=== PATIENT | female | born 1950 | race Caucasian/White ===

== ENCOUNTER 2018-12-26 23:05 | Inpatient (IN) ==
[2018-12-27] MEDS ORDERED: NS 1,000 ML IV ONE ×2 (00:48→02:12)
[2018-12-27] MEDS ORDERED: ROCEPHIN 1 GM in NS 50 ML IV ONE (00:48)
[2018-12-27 01:05] LABS: URINE SOURCE CLEAN CATCH
[2018-12-27 01:11] LABS: BILIRUBIN URINE SMALL (NEGATIVE); BLOOD URINE SMALL (NEGATIVE); COLOR YELLOW; GLUCOSE URINE TRACE mg/dL (NEGATIVE); KETONE URINE 10 mg/dL (NEGATIVE); LEUKOCYTES URINE LARGE (NEGATIVE); NITRITE URINE POSITIVE (NEGATIVE); PH URINE 5.5; PROTEIN URINE 100 mg/dL (NEGATIVE); SP GRAVITY URINE 1.031; TURBIDITY URINE HAZY (CLEAR); UROBILINOGEN URINE 4 mg/dL (NORMAL)
[2018-12-27 01:12] LABS: UR EPITHELIAL CELLS <10 /HPF (<10); URINE BACTERIA 4+ /HPF; URINE RBC <10 /HPF (<10); URINE WBC TNTC /HPF (<10)
[2018-12-27 01:34] LABS: INR 1.35; PROTIME 17.8 Seconds (11.0-16.0)
[2018-12-27] MEDS ORDERED: ZOFRAN IV ONE (01:37)
[2018-12-27 01:49] LABS: BASO# 0.03 X1000 (0.0-0.2); BASO% 0.2 % (0.0-0.8); EOS# 0.02 X1000 (0.0-0.7); EOS% 0.1 % (0.0-10.0); HEMATOCRIT 31.7 % (37.0-47.0); HEMOGLOBIN 10.1 g/dL (12.0-16.0); IMM GRAN# 0.03 X1000 (0.0-0.04); IMM GRAN% 0.2 % (0.0-0.5); LYMPH# 0.93 X1000 (1.2-3.4); LYMPH% 6.3 % (20.5-51.1); MCH 26.3 PG (27-31); MCHC 31.9 g/dL (33-37); MCV 82.6 FL (81-99); MONO# 0.78 X1000 (0.11-0.59); MONO% 5.3 % (1.7-9.3); MPV 11.4 FL (7.4-10.4); NEUT# 12.87 X1000 (1.4-6.5); NEUT% 87.9 % (42.2-75.2); PLT 104 X1000 (130-400); RBC 3.84 XMIL (4.2-5.4); RDW 15.8 % (11.5-14.5); WBC 14.66 X1000 (4.8-10.8)
[2018-12-27 02:05] LABS: AGAP 19; ALB/GLOB RATIO 1.1; ALBUMIN 3.6 g/dL (3.5-5.0); ALKALINE PHOSPHATASE 73 U/L (32-104); BUN 9 mg/dL (8-22); CALCIUM 8.5 mg/dL (8.8-10.2); CHLORIDE 98 mmol/L (98-107); CK PROFILE 92 U/L (24-173); COSMO 278; CREATININE 0.9 mg/dL (0.5-0.9); ESTIMATED GFR > 60; GLUCOSE 193 mg/dL (70-104); GOT 31 U/L (10-30); GPT 16 U/L (10-36); POTASSIUM 3.4 mmol/L (3.5-5.1); SODIUM 137 mmol/L (136-145); TCO2 20 mmol/L (25-35); TOTAL BILIRUBIN 3.29 mg/dL (0.20-1.00)
[2018-12-27] MEDS ORDERED: VANCOMYCIN 1 GM/NS 1 GM/250 ML IVPB IV ONE (02:12)
--- NOTE | 2018-12-27 02:39 | PROVIDER DOCUMENTATION ---
This chart was entered by Sola Chase Scribe, acting as scribe for Ryne Pride MD. HPI-Female /OB/Breast - General Chief Complaint: Female Stated Complaint: LOWER BACK/KIDNEY Time Seen by Provider: 12/27/18 00:43 Source: reports: patient Allergies/Adverse Reactions: Patient Allergies Allergy/AdvReac Type Severity Reaction Status Date / Time hydrocodone bitartrate * AdvReac Mild NAUSEA Verified 01/22/18 18:51 [From Lortab] morphine AdvReac Unknown Verified 06/25/18 22:36 promethazine [From Phenergan] AdvReac Unknown Verified 01/23/18 03:27 Home Medications: Home Medication List Medication Instructions Recorded Confirmed Last Taken Type Sitagliptin Phos/Metformin HCl 1 each PO QAM 05/21/16 01/23/18 01/22/18 History [Janumet 50-1,000 mg Tablet] Furosemide 20 mg PO DAILY #90 tab 01/26/18 Unknown Rx Iron Carbonyl/Ascorbic Acid 1 ea PO BID #180 tab 01/26/18 Unknown Rx [Icar-C] Lactulose 30 ml PO TID #2 udc 01/26/18 Unknown Rx Levothyroxine [Synthroid] 75 microgm PO QAM #90 tab 01/26/18 Unknown Rx Multivitamins/Minerals [Centrum 1 ea PO DAILY #100 tab 01/26/18 Unknown Rx Silver] Nadolol [Corgard] 20 mg PO DAILY #90 tab 01/26/18 Unknown Rx Pantoprazole [Protonix] 40 mg PO BID #180 tab 01/26/18 Unknown Rx Spironolactone 25 mg PO BID #180 tab 01/26/18 Unknown Rx - History of Present Illness-Female /OB Nature of Presenting Problem: Pt is 68/F presenting to ED w/ bilateral flank pain and sts that her urine has a strong odor.Pt has hx of bladder infections, pt also has hx of Cirrhosis of the liver and Diabetes. Does patient report she is ?: No Location of complaint: reports: right flank, left flank Radiation: reports: none Quality of Pain: reports: none Severity in ED: reports: moderate Onset/Duration: reports: gradual Timing: reports: still present Context/Activities at Onset: reports: none Vaginal Symptoms: reports: foul odor Vaginal Bleeding Amount: None Urinary Symptoms: reports: no symptoms Leakage of Fluid: none Sexual intercourse history: reports: Not Active Contraception: reports: none Associated Symptoms: reports: weakness. denies: anxiety, diarrhea, vomiting Similar Symptoms Previously?: No Recently seen or treated by another doctor?: No Review of Systems - Adult - REVIEW OF SYSTEMS - ADULT Constitutional: reports: chills, fever Eyes: reports: no symptoms reported Ears, Nose, Mouth & Throat: reports: no symptoms reported Cardiovascular: reports: no symptoms reported Respiratory: reports: no symptoms reported Gastrointestinal: reports: no symptoms reported. denies: abdominal pain, vomiting Genitourinary: reports: flank pain, frequent UTI's. denies: dysuria Musculoskeletal: reports: back pain Integumentary: reports: no symptoms reported Neurological: denies: dizziness/vertigo, headache/migraines Psychiatric: reports: no symptoms reported Past History - Adult - PAST MEDICAL HISTORY-ADULT Review of Records: reports: Old Records Reviewed, Nursing Assessment Review, Medications Reviewed, Social history reviewed & non-contributory. Major Childhood Illnesses: reports: denies history Cardiovascular: reports: HTN, murmur Respiratory: reports: denies history Gastrointestinal: reports: other (cirrhosis) Obstetrical/Gynecological: reports: uterine/ovarian cancer Genitourinary: reports: denies history Musculoskeletal: reports: arthritis (RA) Neurological: reports: denies history Endocrine/Immune: reports: Diabetes, thyroid disorder Other Conditions: reports: denies history - PRIOR SURGERIES/PROCEDURES Surgical/Procedure History: reports: hysterectomy, other (cervical ca removed x2 ) - IMMUNIZATION STATUS Childhood Immunizations: See Nurse Assessment Flu Vaccine: See Nurse Assessment - FAMILY HISTORY Family History: reviewed, not pertinent - SOCIAL HISTORY Smoking: denies, non-smoker Substance Use: none/never Alcohol Use Frequency: never Living Situation: family Physical Exam-General - PHYSICAL EXAM-ADULT Initial Vital Signs Reviewed: Yes - CONSTITUTIONAL General Appearance: alert, moderate distress, other (jaundice noted) - EYES Eyes: PERRL/EOMI - HEAD, EARS, NOSE, MOUTH & THROAT HENMT: normocephalic/atraumatic, moist mucous membranes - NECK Neck: non-tender, full range of motion, supple, normal inspection - RESPIRATORY Respiratory: lungs clear, normal breath sounds - CARDIOVASCULAR Cardiovascular: tachycardia, systolic murmur - GASTROINTESTINAL (ABDOMEN) Abdominal Exam: normal bowel sounds, soft, tenderness (lower abdomen) - MUSCULOSKELETAL Back Exam: CVA tenderness (R cva) Extremity: normal range of motion, non-tender, normal gait, normal inspection - SKIN Integumentary: normal color, warm/dry - NEUROLOGIC Neurologic: grossly normal - PSYCHIATRIC Psych/Mental Status: normal thought content, normal thought process, oriented x 3 Progress - PLAN OF CARE/RESULTS Progress/Plan/Lab Results: Vital Signs - 8 hr 12/26/18 23:23 12/27/18 01:32 12/27/18 01:34 Temperature 100.9 F H Pulse Rate 110 H 116 H 113 H Respiratory Rate 20 27 H 27 H Blood Pressure 145/72 161/71 O2 Sat by Pulse Oximetry 96 97 12/27/18 01:35 12/27/18 01:40 12/27/18 01:50 Temperature Pulse Rate 107 H 108 H 115 H Respiratory Rate 29 H 28 H 36 H Blood Pressure O2 Sat by Pulse Oximetry 97 97 95 Laboratory Results - last 24 hr 12/27/18 12/27/18 12/27/18 00:22 01:10 01:10 WBC 14.66 H RBC 3.84 L Hgb 10.1 L Hct 31.7 L MCV 82.6 MCH 26.3 L MCHC 31.9 L RDW Std Deviation 15.8 H Plt Count 104 L MPV 11.4 H Immature Gran % (Auto) 0.2 Neut % (Auto) 87.9 H Lymph % (Auto) 6.3 L [place] % (Auto) 5.3 Eos % (Auto) 0.1 Baso % (Auto) 0.2 Immature Gran # (Auto) 0.03 Neut # (Auto) 12.87 H Lymph # (Auto) 0.93 L [place] # (Auto) 0.78 H Eos # (Auto) 0.02 Baso # (Auto) 0.03 PT INR PTT (Actin FS) Sodium 137 Potassium 3.4 L Chloride 98 Carbon Dioxide 20 L Anion Gap 19 BUN 9 Creatinine 0.9 Estimated GFR/1.73 m2 > 60 BUN/Creatinine Ratio 10 Glucose 193 H Calculated Osmolality 278 Calcium 8.5 L Magnesium Total Bilirubin 3.29 H AST 31 H ALT 16 Alkaline Phosphatase 73 Creatine Kinase 92 Troponin T Total Protein 7.0 Albumin 3.6 Globulin 3.4 Albumin/Globulin Ratio 1.1 Plasma Lactate Urine Source CLEAN CATCH Urine Color YELLOW Urine Turbidity HAZY Urine pH 5.5 Ur Specific [place] 1.031 Urine Protein 100 A Ur Glucose (Stick) TRACE Ur Ketones (Stick) 10 A Urine Blood SMALL A Urine Nitrite POSITIVE A Urine Bilirubin SMALL A Urobilinogen Dipstick 4 A Urine Leukocytes LARGE A Urine WBC (Auto) TNTC A Urine RBC (Auto) <10 U Epithel Cells (Auto) <10 Urine Bacteria (Auto) 4+ 12/27/18 12/27/18 12/27/18 01:10 01:10 01:10 WBC RBC Hgb Hct MCV MCH MCHC RDW Std Deviation Plt Count MPV Immature Gran % (Auto) Neut % (Auto) Lymph % (Auto) [place] % (Auto) Eos % (Auto) Baso % (Auto) Immature Gran # (Auto) Neut # (Auto) Lymph # (Auto) [place] # (Auto) Eos # (Auto) Baso # (Auto) PT 17.8 H INR 1.35 PTT (Actin FS) 26.0 Sodium Potassium Chloride Carbon Dioxide Anion Gap BUN Creatinine Estimated GFR/1.73 m2 BUN/Creatinine Ratio Glucose Calculated Osmolality Calcium Magnesium Total Bilirubin AST ALT Alkaline Phosphatase Creatine Kinase Troponin T < 0.010 Total Protein Albumin Globulin Albumin/Globulin Ratio Plasma Lactate 5.2 H* Urine Source Urine Color Urine Turbidity Urine pH Ur Specific [place] Urine Protein Ur Glucose (Stick) Ur Ketones (Stick) Urine Blood Urine Nitrite Urine Bilirubin Urobilinogen Dipstick Urine Leukocytes Urine WBC (Auto) Urine RBC (Auto) U Epithel Cells (Auto) Urine Bacteria (Auto) 12/27/18 01:10 WBC RBC Hgb Hct MCV MCH MCHC RDW Std Deviation Plt Count MPV Immature Gran % (Auto) Neut % (Auto) Lymph % (Auto) [place] % (Auto) Eos % (Auto) Baso % (Auto) Immature Gran # (Auto) Neut # (Auto) Lymph # (Auto) [place] # (Auto) Eos # (Auto) Baso # (Auto) PT INR PTT (Actin FS) Sodium Potassium Chloride Carbon Dioxide Anion Gap BUN Creatinine Estimated GFR/1.73 m2 BUN/Creatinine Ratio Glucose Calculated Osmolality Calcium Magnesium 1.7 Total Bilirubin AST ALT Alkaline Phosphatase Creatine Kinase Troponin T Total Protein Albumin Globulin Albumin/Globulin Ratio Plasma Lactate Urine Source Urine Color Urine Turbidity Urine pH Ur Specific [place] Urine Protein Ur Glucose (Stick) Ur Ketones (Stick) Urine Blood Urine Nitrite Urine Bilirubin Urobilinogen Dipstick Urine Leukocytes Urine WBC (Auto) Urine RBC (Auto) U Epithel Cells (Auto) Urine Bacteria (Auto) Orders Category Date Time Status Cardiac Monitoring DIRECTED Care 12/27/18 00:46 Active IV Insertion ORDERED Care 12/27/18 00:46 Completed Notify MD of + Sepsis Screen NOW Care 12/27/18 00:46 Active Notify Physician As Ordered Care 12/27/18 00:46 Active CHEST-1 VIEW [RAD] Stat Exams 12/27/18 00:46 Taken BLOOD CULTURE [BLDCUL] Stat Lab 12/27/18 01:00 Results CBC WITH DIFF [HEME] Stat Lab 12/27/18 01:10 Completed CK PROFILE [SP CHEM] Stat Lab 12/27/18 01:10 Completed COMPREHENSIVE METABOLIC PANEL [CHEM] Stat Lab 12/27/18 01:10 Completed LACTATE, PLASMA [CHEM] Lab 12/27/18 01:10 Completed LACTATE, PLASMA [CHEM] Lab 12/27/18 04:00 Uncollected LACTATE, PLASMA [CHEM] Lab 12/27/18 07:00 Uncollected MAGNESIUM [CHEM] Stat Lab 12/27/18 01:10 Completed PROTIME WITH INR [COAG] Stat Lab 12/27/18 01:10 Completed PTT [COAG] Stat Lab 12/27/18 01:10 Completed TROPONIN T Stat Lab 12/27/18 01:10 Completed URINALYSIS W/POSS RFLX CULT [URINALYSIS] Stat Lab 12/27/18 00:22 Completed URINE CULTURE [RM] Routine Lab 12/27/18 01:13 Received 0.9% Sodium Chloride Inj [Ns] 1,000 ml Med 12/27/18 00:48 Discontinued IV 999 mls/hr 0.9% Sodium Chloride Inj [Ns] 1,000 ml Med 12/27/18 02:12 Active IV 999 mls/hr CefTRIAXONE [Rocephin] 1 gm Med 12/27/18 00:48 Discontinued 0.9% Sodium Chloride Inj [Ns] 50 ml IV NOW Ondansetron [Zofran] Med 12/27/18 01:37 Discontinued 4 mg IV NOW ONE Vancomycin 1 gm/Ns Med 12/27/18 02:12 Active 1 gm in 250 ml IV NOW Oxygen Device Stat Oth 12/27/18 00:46 Active Pt meet criteria for sepsis, sepsis protocol initiated. source UTI. Result Diagrams: 12/27/18 01:10 12/27/18 01:10 - CONSULTS/PCP/HOSPITALIST Notification #1 *Consult/PCP/Hospitalist*: Dr. Lance Time Discussed: 02:28 Consult Disposition: Admit (Hx, PE and pt care discussed, accepted.) Departure - Departure Date of Disposition Decision: 12/27/18 Time of Disposition Decision: 02:34 DIAGNOSIS: Pyelonephritis, Severe sepsis Disposition: ADMITTED INPATIENT 09 Certified Medical Emergency: Emergent Condition: Serious Referrals and Follow-Ups: Flori Delacruz MD [Primary Care Provider] - - Critical Care Note This patient required my direct & personal management of CC.: No Attestation - Physician/ CELI Attestation Patient care was provided by Advanced Practice Provider:: No The physician spent face to face time with patient:: Yes Advanced Practice Provider documentation review:: Supervising physician onsite and consulted in the evaluation and care of this patient. The physician did have a face to face encounter with the patient. This chart was documented by the indicated scribe, (Sola Chase, Akila) and accurately reflects the services I performed and decisions made by me, Ryne Reyes MD, as attested by the provider's signature.
[2018-12-27] MEDS ORDERED: KLOR-CON PO ONE (03:32)
[2018-12-27] MEDS ORDERED: MAGNESIUM SULFATE 1 GM/D5W 1 GM/100 ML IVPB IV ONE (03:32)
[2018-12-27] MEDS ORDERED: ZOFRAN IV PRN (03:32)
[2018-12-27 03:56] LABS: HEMOGLOBIN A1C 8.7 % (4.8-6.0)
--- NOTE | 2018-12-27 04:06 | HISTORY AND PHYSICAL ---
CHIEF COMPLAINT: Flank pain and strong smelling urine. HISTORY OF PRESENT ILLNESS: This is an unfortunate 68-year-old female with a history of FLORES which is progressing to cirrhosis with ascites. She has a history of diabetes mellitus type 2, hypertension and hypothyroidism as well. She comes in having bilateral flank pain and foul smelling urine. Laboratory data showed the patient to have leukocytosis as well as nitrate- positive leukocyte esterase urinary tract infection. Her total bilirubin was noted to be 3.29, which is higher than her baseline level. Ammonia has not been checked, but the patient was slightly confused. I am unsure if this is secondary to the urinary tract infection or possible hepatic encephalopathy. She will be admitted for further evaluation and treatment. PAST MEDICAL HISTORY: See HPI. PREVIOUS SURGICAL HISTORY: Total hysterectomy, EGD with variceal banding, cervical cancer removed x2. ALLERGIES: [place] causing nausea, morphine causing nausea and Phenergan. HOME MEDICATIONS: The family and patient did not know the home medications. I believe that she takes Lasix 20 mg p.o. daily, ICAR-C p.o. b.i.d., lactulose 30 mL p.o. t.i.d., Synthroid 75 mcg p.o. q.a.m., multivitamin 1 daily, nadolol 20 mg p.o. daily, Protonix 40 mg p.o. b.i.d., Janumet p.o. q.a.m. and spironolactone 25 mg p.o. b.i.d. This will be confirmed with her pharmacy tomorrow. SOCIAL HISTORY: Lives with her daughter. No tobacco, alcohol or illicit drugs. FAMILY HISTORY: Mother from uterine cancer. REVIEW OF SYSTEMS: A 14-point review of systems was conducted with the patient with pertinent positives listed above in the HPI. All other systems reviewed and found to be negative. PHYSICAL EXAMINATION: VITAL SIGNS: Temperature 100.9, pulse 114, respirations 20, blood pressure 145/72, oxygen saturation 96% on room air. GENERAL: A pleasant, somewhat confused 68-year-old female, chronically ill- appearing. Oriented to person and place, somewhat disoriented to situation. Oriented to time. In no acute distress. HEENT: Head is atraumatic, normocephalic. Pupils are equal, round and reactive to light. Extraocular eye movements are intact. Sclerae are jaundiced. Conjunctivae are pale. Oral mucosa is dry. NECK: Supple. No JVD. Mild hepatojugular reflux. CARDIAC: S1 and S2 appreciated. A 3/6 systolic ejection murmur noted. No gallops. No rubs. LUNGS: Decreased bilaterally. No rhonchi, wheezes or rales. Symmetrical rise and fall with respirations. ABDOMEN: Protuberant, soft, nondistended. Positive fluid wave test. Bowel sounds hypoactive in all 4 quadrants. EXTREMITIES: No clubbing, cyanosis, or edema; 2+ pedal pulses bilaterally. GENITOURINARY: No bladder distention. Patient voids. Otherwise deferred. NEUROLOGICAL: Oriented to person, place and time. Somewhat disoriented to situation. Some confusion while talking. No focal motor deficits. Otherwise nonfocal examination. INTEGUMENTARY: Jaundiced. Warm, dry and intact. No acute lesions or rash. DIAGNOSTIC DATA: Chest x-ray: No effusions or infiltrates. LABORATORY DATA: WBC 14.66, hemoglobin 10.1, hematocrit 31.7, platelet count 104,000. INR 1.35. Sodium 137, potassium 3.4, chloride 98, carbon dioxide 20, BUN 9, creatinine 0.9, glucose 193. Total bilirubin 3.29. Urine nitrate positive, leukocyte esterase positive, too numerous to count WBCs. ASSESSMENT AND PLAN: 1. Urinary tract infection. Will treat with Zosyn IV. The patient has had 2 urines that were positive for Escherichia coli that was resistant to Zosyn. Will change pending cultures if necessary. 2. FLORES (non-alcoholic fatty liver disease) which is progressing to cirrhosis. The patient has an elevated bilirubin. Will hydrate with fluid. Recheck laboratory data in the a.m. The patient's bilirubin is chronically elevated, however, this is slightly higher than usual. 3. Mild encephalopathy. This is likely secondary to hepatic encephalopathy or infectious encephalopathy related to the urinary tract infection. Will start lactulose 30 mL b.i.d. 4. Diabetes mellitus type 2 with hyperglycemia. Check hemoglobin A1c. Fingerstick blood sugars q.a.c. and at h.s. with sliding scale insulin. Hold Janumet. Further recommendations per the patient's clinical course. Dictated by PATRICIA Gallegos for Lacy Lance MD cc: PATRICIA Gallegos MD Independent exam and assessment performed by me at bedside with [facility]. For now will continue with Zosyn,but if pt is still symptomatic despite coverage with Zosyn (which is given to extend coverage to the biliary system) one needs to consider possibility of SBP and switch abx accordingly. No clinical exam to suggest peritoneal or biliary etiology except for icterus noted. MTDD
[2018-12-27] MEDS: LOVENOX SUBQ SCH (04:22)
[2018-12-27] MEDS: NS 1,000 ML IV SCH ×2 (04:22→10:43)
--- NOTE | 2018-12-27 05:23 | Diag Imaging Result Doc PS360 ---
EXAM: CHEST-1 VIEW HISTORY: sepsis TECHNIQUE: Chest single view COMPARISON: 08/22/2018 FINDINGS: The lungs are well expanded. The heart is not enlarged. The vessels are not distended. There are no infiltrates. Small left effusion versus pleural thickening. IMPRESSION: No pneumonia Electronically signed by Anand Baker 12/27/2018 5:21 AM
[2018-12-27] MEDS: ZOSYN 3.375 GM in NS 50 ML IV SCH ×3 (05:54→18:40)
[2018-12-27] MEDS: SYNTHROID PO SCH ×2 (05:54→06:42)
[2018-12-27] MEDS: HUMALOG SUBQ SCH ×4 (06:42→21:17)
[2018-12-27] MEDS: ALDACTONE PO SCH ×2 (10:38→21:16)
[2018-12-27] MEDS: ICAR-C PO SCH ×2 (10:38→21:16)
[2018-12-27] MEDS: CORGARD PO SCH (10:38)
[2018-12-27] MEDS: LACTULOSE PO SCH ×3 (10:38→21:16)
[2018-12-27] MEDS: PROTONIX PO SCH ×2 (10:38→21:16)
[2018-12-27] MEDS: LASIX PO SCH (10:38)
--- NOTE | 2018-12-27 16:18 | PROGRESS NOTE ---
DATE: 12/27/2018 SUBJECTIVE: This patient is alert. She is oriented. She seems to be weak and apparently she was confused today in the morning and yesterday. She has a history of liver cirrhosis and urinary tract infection right now. Also we have a positive blood culture 1/2 that showed gram-positive cocci. She has been placed on Zosyn and I will add Zyvox to her medications. OBJECTIVE: Vital Signs: Temperature 98.1 degrees, pulse 101, respiratory rate 18, blood pressure 124/49, oxygen saturation 97% on 2 L of nasal cannula. HEENT: Head normocephalic no trauma PERRLA. Icteric sclerae. Neck: Supple, no JVD, central trachea. Chest: Clear to auscultation, no wheezing, no rales. Slightly decreased at the bases. Abdomen: Soft, protuberant and slightly distended. Positive fluid wave test. Bowel sounds present. Extremities: No clubbing, no cyanosis. She has no edema. Neurological: The patient is alert. She is oriented. She is following commands, but apparently she has been having some confusion. LABORATORY: WBC 14.6, hemoglobin 10.1, hematocrit 31.7, platelets 104,000. Sodium 137, potassium 3.4, chloride 98, bicarbonate 20, BUN 9, creatinine 0.9, glucose 193, calcium 8.5. ASSESSMENT AND PLAN: 1. Sepsis secondary to urinary tract infection. We will continue with Zosyn and I will add vancomycin due to gram-positive cocci bacteremia 1/2. 2. Gram-positive cocci bacteremia. Blood culture showed 1/2 positive result for gram-positive cocci, I have placed this patient on Zyvox. Probably this is a contamination. 3. Nonalcoholic steatohepatitis which is progressing to liver cirrhosis. She has elevated bilirubin. We will continue with IV fluids and I will recheck this patient in the morning. 4. Mild encephalopathy. It looks like this is getting better. We will continue with the same management, likely secondary to urinary tract infection. 5. Type 2 diabetes. Hemoglobin A1c is 8.7. We will continue with same management for now. cc: Karthikeyan Shay MD
[2018-12-27] MEDS: ZYVOX 600 MG/D5W 600 MG/300 ML IVPB IV SCH (21:15)
[2018-12-28] MEDS: ZOSYN 3.375 GM in NS 50 ML IV SCH ×4 (00:16→17:48)
[2018-12-28] MEDS: NS 1,000 ML IV SCH ×3 (03:08→06:41)
[2018-12-28] MEDS: HUMALOG SUBQ SCH ×4 (06:08→22:04)
[2018-12-28] MEDS: SYNTHROID PO SCH (06:08)
[2018-12-28 07:30] LABS: BASO# 0.03 X1000 (0.0-0.2); BASO% 0.6 % (0.0-0.8); EOS# 0.02 X1000 (0.0-0.7); EOS% 0.4 % (0.0-10.0); HEMOGLOBIN 7.8 g/dL (12.0-16.0); LYMPH# 0.71 X1000 (1.2-3.4); LYMPH% 13.2 % (20.5-51.1); MCH 26.7 PG (27-31); MCHC 31.2 g/dL (33-37); MCV 85.6 FL (81-99); MONO# 0.61 X1000 (0.11-0.59); MONO% 11.3 % (1.7-9.3); MPV 12.3 FL (7.4-10.4); NEUT# 4.02 X1000 (1.4-6.5); NEUT% 74.5 % (42.2-75.2); PLT 74 X1000 (130-400); RBC 2.92 XMIL (4.2-5.4); RDW 16.3 % (11.5-14.5); WBC 5.39 X1000 (4.8-10.8)
[2018-12-28 07:56] LABS: AGAP 9; ALB/GLOB RATIO 0.9; ALBUMIN 2.4 g/dL (3.5-5.0); ALKALINE PHOSPHATASE 49 U/L (32-104); BUN 15 mg/dL (8-22); CALCIUM 7.2 mg/dL (8.8-10.2); CHLORIDE 106 mmol/L (98-107); COSMO 278; CREATININE 0.9 mg/dL (0.5-0.9); ESTIMATED GFR > 60; GLUCOSE 193 mg/dL (70-104); GOT 28 U/L (10-30); GPT 11 U/L (10-36); POTASSIUM 2.8 mmol/L (3.5-5.1); SODIUM 136 mmol/L (136-145); TCO2 21 mmol/L (25-35); TOTAL BILIRUBIN 1.31 mg/dL (0.20-1.00); TOTAL PROTEIN 5.1 g/dL (6.3-8.3)
[2018-12-28] MEDS: ZYVOX 600 MG/D5W 600 MG/300 ML IVPB IV SCH ×2 (09:16→22:03)
[2018-12-28] MEDS: LACTULOSE PO SCH (09:16)
[2018-12-28] MEDS: LOVENOX SUBQ SCH (09:17)
[2018-12-28] MEDS: CORGARD PO SCH (09:17)
[2018-12-28] MEDS: PROTONIX PO SCH ×2 (09:17→22:03)
[2018-12-28] MEDS: ALDACTONE PO SCH ×2 (09:17→22:03)
[2018-12-28] MEDS: ICAR-C PO SCH ×2 (09:17→22:03)
[2018-12-28] MEDS: LASIX PO SCH (09:17)
[2018-12-28] MEDS ORDERED: KLOR-CON PO ONE (10:49)
[2018-12-28] MEDS: NS + KCL 20 MEQ 1,000 ML IV SCH (15:43)
--- NOTE | 2018-12-28 18:23 | PROGRESS NOTE ---
DATE: 12/28/2018 SUBJECTIVE: This patient is alert. She is oriented. She has been having multiple bowel movements, diarrhea. I will decrease the dose of the lactulose. She has been taking 3 times a day and I will decrease it to 1 and monitor. She has a history of liver cirrhosis. She came in with a urinary tract infection with a positive culture that showed gram-negative rods. Also she has a gram-positive cocci bacteremia, pending final results and sensitivity. I will continue with Zosyn and Zyvox at this moment. OBJECTIVE: Vital Signs: Temperature 98.8 degrees, pulse 65, respiratory rate 19, blood pressure 121/44, oxygen saturation 98 on room air. HEENT: Head normocephalic. No trauma. PERRLA. Icteric sclerae. Neck: Supple. No JVD. No masses. Central trachea. Chest: Clear to auscultation. No wheezing. No rales. Slightly decreased at the bases. Abdomen: Soft, protuberant, slightly distended. Positive fluid wave test. Bowel sounds present. Extremities: No clubbing. No cyanosis. No edema. Neurological: The patient is alert. She is oriented. She is following commands. She has not been confused. LABORATORY: WBC 5.3, hemoglobin 7.8, hematocrit 25, platelets 74,000. Sodium 136, potassium 2.8, chloride 106, bicarbonate 21, BUN 15, creatinine 0.9, glucose 193, calcium 7.2, albumin 2.4. ASSESSMENT AND PLAN: 1. Encephalopathy, likely secondary to sepsis, resolved. This patient is completely alert and oriented x3. No focal deficits. 2. Sepsis secondary to urinary tract infection and bacteremia. Pending final results and sensitivity. Continue with Zosyn and Zyvox. 3. Gram-positive cocci bacteremia, as above. 4. Nonalcoholic steatohepatitis which is now apparently liver cirrhosis. She has been followed by her doctor at [facility]. I will continue with IV fluids for now and I will recheck this patient in the morning. 5. Type 2 diabetes. Hemoglobin A1c 8.7. Continue with same management. 6. Diarrhea. I will decrease the dose of the lactulose. cc: Karthikeyan Shay MD
[2018-12-29] MEDS: ZOSYN 3.375 GM in NS 50 ML IV SCH ×2 (00:30→06:25)
[2018-12-29] MEDS: HUMALOG SUBQ SCH ×5 (03:08→20:51)
[2018-12-29] MEDS: SYNTHROID PO SCH (06:25)
[2018-12-29] MEDS: NS + KCL 20 MEQ 1,000 ML IV SCH (06:25)
[2018-12-29 08:25] LABS: BASO# 0.02 X1000 (0.0-0.2); BASO% 0.4 % (0.0-0.8); EOS# 0.07 X1000 (0.0-0.7); EOS% 1.4 % (0.0-10.0); HEMATOCRIT 25.8 % (37.0-47.0); HEMOGLOBIN 7.9 g/dL (12.0-16.0); IMM GRAN# 0.03 X1000 (0.0-0.04); IMM GRAN% 0.6 % (0.0-0.5); LYMPH# 1.02 X1000 (1.2-3.4); LYMPH% 20.7 % (20.5-51.1); MCH 25.7 PG (27-31); MCHC 30.6 g/dL (33-37); MONO# 0.72 X1000 (0.11-0.59); MONO% 14.6 % (1.7-9.3); MPV 11.8 FL (7.4-10.4); NEUT# 3.06 X1000 (1.4-6.5); NEUT% 62.3 % (42.2-75.2); PLT 75 X1000 (130-400); RBC 3.07 XMIL (4.2-5.4); RDW 16.1 % (11.5-14.5); WBC 4.92 X1000 (4.8-10.8)
[2018-12-29 08:53] LABS: AGAP 12; ALBUMIN 2.4 g/dL (3.5-5.0); ALKALINE PHOSPHATASE 42 U/L (32-104); BUN 12 mg/dL (8-22); CALCIUM 7.3 mg/dL (8.8-10.2); CHLORIDE 109 mmol/L (98-107); COSMO 279; CREATININE 0.7 mg/dL (0.5-0.9); ESTIMATED GFR > 60; GLUCOSE 136 mg/dL (70-104); GOT 33 U/L (10-30); GPT 10 U/L (10-36); POTASSIUM 3.4 mmol/L (3.5-5.1); SODIUM 139 mmol/L (136-145); TCO2 18 mmol/L (25-35); TOTAL BILIRUBIN 1.05 mg/dL (0.20-1.00); TOTAL PROTEIN 4.7 g/dL (6.3-8.3)
[2018-12-29] MEDS ORDERED: KLOR-CON PO ONE (10:03)
[2018-12-29] MEDS: ZYVOX 600 MG/D5W 600 MG/300 ML IVPB IV SCH (10:17)
[2018-12-29] MEDS: ALDACTONE PO SCH ×2 (10:17→20:51)
[2018-12-29] MEDS: LACTULOSE PO SCH (10:17)
[2018-12-29] MEDS: CORGARD PO SCH (10:18)
[2018-12-29] MEDS: LASIX PO SCH (10:18)
[2018-12-29] MEDS: LOVENOX SUBQ SCH (10:18)
[2018-12-29] MEDS: PROTONIX PO SCH ×2 (10:21→20:51)
[2018-12-29] MEDS: ICAR-C PO SCH ×2 (10:21→20:51)
[2018-12-29] MEDS: ROCEPHIN 2 GM in NS 50 ML IV SCH (16:52)
--- NOTE | 2018-12-29 20:46 | PROGRESS NOTE ---
DATE: 12/29/2018 SUBJECTIVE: This patient is alert. She is oriented x3. Bowel movements are better. We have a positive blood culture that showed Streptococcus pyogenes and urine culture that showed E coli, I have placed this patient on ceftriaxone. I will get a new blood culture today and hopefully I will be able to discharge this patient next Tuesday if the blood culture is negative. Likely she will need to get a PICC line and go home with IV antibiotics. Infectious Disease Department has been consulted. OBJECTIVE: Vital Signs: Temperature 99 degrees, pulse 67, respiratory rate 18, blood pressure 154/60, oxygen saturation 100% on room air. HEENT: Head normocephalic no trauma. PERRLA. Icteric sclerae. Neck: Supple. No JVD. No masses. Central trachea. Chest: Clear to auscultation. No wheezing. No rales. Slightly decreased at the bases. Abdomen: Soft, protuberant and slightly distended. Positive fluid wave test. Bowel sounds are present. Extremities: No edema, no clubbing, no cyanosis. Neurological: The patient is alert. She is oriented. She is following commands. She has not been confused. LABORATORY: WBC 4.9, hemoglobin 7.9, hematocrit 25.8, platelets 75,000. Sodium 134, potassium 3.4, chloride 109, bicarbonate 18, BUN 12, creatinine 0.7, glucose 136, calcium 7.3, AST 33, ALT 10, alkaline phosphatase 42, total bilirubin 1.05, albumin 2.4. ASSESSMENT AND PLAN: 1. Encephalopathy, likely secondary to sepsis, resolved. This patient is completely alert and oriented x3. No focal deficits. 2. Sepsis secondary to urinary tract infection. Also, this patient is bacteremic, blood culture showed Streptococcus pyogenes and urine culture showed Escherichia coli, both sensitive to ceftriaxone. So, I will stop her previous treatment with Zosyn and Zyvox and I will put this patient on ceftriaxone 2 g daily. Also, I will consult Infectious Disease Department to evaluate this patient. I will get a new blood culture. 3. Non-alcoholic steatohepatitis, which is now apparently liver cirrhosis. This has been followed by her [facility] doctor. I will stop the IV fluids now and I will continue with her home medications. She seems to be doing better. 4. Type 2 diabetes. Hemoglobin A1c 8.7. Continue with same management. 5. Diarrhea, improving since I decreased the dose of the lactulose. cc: Karthikeyan Shay MD
--- NOTE | 2018-12-29 21:50 | INFECTIOUS DISEASE CONSULT REP ---
DATE: 12/29/2018 CONCLUSION: Patient has a group A streptococcal bacteremia and an E coli urinary tract infection. The exact portal of entry of the bacteremia is uncertain to me. It may be that because the patient has cirrhosis she is more likely to have a bacteremia which in this case is being caused by group A strep. The patient's E coli urinary tract infection is symptomatic. The patient does have cirrhosis and she could have had spontaneous bacterial peritonitis as the cause of the group A streptococcal bacteremia but on physical exam the patient does have ascites but there is no tenderness and I doubt that she did have spontaneous bacterial peritonitis. RECOMMENDATIONS: I agree with Dr. Casanova's decision to switch the patient to Rocephin 2 g IV daily. Repeat blood cultures have been drawn and if they are negative then a PICC will be placed and will attempt to send the patient home with IV Rocephin daily for a total of 14 days. DISCUSSION: The patient tells me that she was admitted to the hospital because she was having low back pain and she noticed an odor in her urine and she also had fever. Her blood cultures have grown out group A strep. Her urine grew out E coli. Laboratory studies show a CBC with a white count of 4920, hemoglobin 7.9, and platelet count of 75,000. Creatinine is 0.7. GFR is greater than 60. Liver function studies are normal. The patient's chest x-ray shows clear lung sullivan. PAST MEDICAL HISTORY/REVIEW OF SYSTEMS: Eyes and ears: She wears glasses. Her hearing is okay. Neck: No stiffness. Respiratory: No cough or shortness of breath. Cardiac: No chest pain or palpitations. GI: No nausea, vomiting, or diarrhea. : See present illness. Bones, joints, muscles: No swollen joints or myalgias. Neurologic: No seizures. No loss of motor or sensory function. 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 She has had a hysterectomy and bilateral salpingo-oophorectomy because of cancer of the cervix. PREVIOUS HOSPITALIZATIONS AND OPERATIONS: She has had labor and deliveries, a hysterectomy, a bilateral salpingo-oophorectomy. She had upper GI bleeding and underwent esophagogastroduodenoscopy with varicella banding. MEDICAL DISEASES: Positive for diabetes mellitus, cirrhosis of the liver and cervical cancer, hypothyroidism and gastroesophageal reflux disease. INFECTIOUS DISEASE HISTORY: Positive for urinary tract infection. Negative for pneumonia. FAMILY HISTORY: Positive for diabetes mellitus, hypertension and cancer. SOCIAL HISTORY: The patient is . She lives with her daughter. She has a dog and a cat for pet. She does not smoke cigarettes, drink alcoholic beverages or abuse drugs. ALLERGIES: The patient is allergic to hydrocodone, morphine, and Phenergan. HOME MEDICATIONS: Include Lasix, Synthroid, Corgard, Protonix, Janumet and spironolactone. PHYSICAL EXAMINATION: Vital Signs: Temperature is 99 degrees, pulse 67, respirations 18, blood pressure is 154/60, patient weighs 104 pounds. General: This is an ill-appearing somewhat malnourished appearing elderly female. She is 5 feet 2 inches tall, weighs 104 pounds. Head/eyes/ears/nose/throat: She wears glasses. She can hear my spoken words. There is no drainage from the nose or ears. I did not see any white patches in her mouth. Neck: No meningismus. Lungs: Clear to auscultation. Cardiovascular: Heart rate is regular. I did hear a murmur. Abdomen: She has ascites. The abdomen is not tender. Neurologic: The patient is alert. She ambulates without difficulty. There is no tremor. Her memory as regarding her medical history seemed intact. Integument: No rash. Thank you for the consult. cc: Davidson Luna MD
[2018-12-30] MEDS: HUMALOG SUBQ SCH ×4 (06:25→21:05)
[2018-12-30] MEDS: SYNTHROID PO SCH (06:26)
[2018-12-30 08:19] LABS: BASO# 0.02 X1000 (0.0-0.2); BASO% 0.4 % (0.0-0.8); EOS# 0.09 X1000 (0.0-0.7); EOS% 1.9 % (0.0-10.0); HEMATOCRIT 27.1 % (37.0-47.0); HEMOGLOBIN 8.5 g/dL (12.0-16.0); IMM GRAN# 0.04 X1000 (0.0-0.04); IMM GRAN% 0.9 % (0.0-0.5); LYMPH# 1.14 X1000 (1.2-3.4); LYMPH% 24.6 % (20.5-51.1); MCH 26.2 PG (27-31); MCHC 31.4 g/dL (33-37); MCV 83.6 FL (81-99); MONO# 0.69 X1000 (0.11-0.59); MONO% 14.9 % (1.7-9.3); MPV 10.7 FL (7.4-10.4); NEUT# 2.65 X1000 (1.4-6.5); NEUT% 57.3 % (42.2-75.2); PLT 84 X1000 (130-400); RBC 3.24 XMIL (4.2-5.4); RDW 16.4 % (11.5-14.5); WBC 4.63 X1000 (4.8-10.8)
[2018-12-30] MEDS: PROTONIX PO SCH ×2 (08:30→21:06)
[2018-12-30] MEDS: ALDACTONE PO SCH ×2 (08:30→21:05)
[2018-12-30] MEDS: ICAR-C PO SCH ×2 (08:30→21:05)
[2018-12-30] MEDS: LOVENOX SUBQ SCH (08:30)
[2018-12-30] MEDS: CORGARD PO SCH (08:30)
[2018-12-30] MEDS: LASIX PO SCH (08:30)
[2018-12-30] MEDS: LACTULOSE PO SCH (08:30)
[2018-12-30 08:37] LABS: AGAP 9; ALBUMIN 2.6 g/dL (3.5-5.0); ALKALINE PHOSPHATASE 43 U/L (32-104); BUN 9 mg/dL (8-22); CALCIUM 7.7 mg/dL (8.8-10.2); CHLORIDE 109 mmol/L (98-107); COSMO 273; CREATININE 0.7 mg/dL (0.5-0.9); ESTIMATED GFR > 60; GLUCOSE 113 mg/dL (70-104); GOT 31 U/L (10-30); GPT 11 U/L (10-36); POTASSIUM 3.8 mmol/L (3.5-5.1); SODIUM 137 mmol/L (136-145); TCO2 19 mmol/L (25-35); TOTAL BILIRUBIN 1.02 mg/dL (0.20-1.00); TOTAL PROTEIN 5.3 g/dL (6.3-8.3)
[2018-12-30] MEDS: ROCEPHIN 2 GM in NS 50 ML IV SCH (16:39)
--- NOTE | 2018-12-30 18:14 | PROGRESS NOTE ---
DATE: 12/30/2018 SUBJECTIVE: No acute events overnight. We repeated a blood culture yesterday morning, and so far, it has been negative. Hopefully, if the blood culture is negative, on Tuesday, likely this patient will need a PICC line and go home with IV antibiotics. OBJECTIVE: Vital Signs: Temperature 99.2 degrees, pulse 64, respiratory rate 18, blood pressure 152/56, oxygen saturation 97% on room air. HEENT: Head, normocephalic, no trauma. PERRLA. Neck: Supple. No JVD. No masses. Central trachea. Chest: Clear to auscultation. No wheezing. No rales. Slightly decreased at the bases. Abdomen: Soft, protuberant. Positive fluid wave test. Bowel sounds are present. Extremities: No edema. No clubbing. No cyanosis. Neurological: The patient is alert. She is oriented. She is following commands. She has not been confused. LABORATORY: WBC 4.6, hemoglobin 8.5, hematocrit 27.1, platelet 84,000. Sodium 137, potassium 3.8, chloride 109, bicarbonate 19, BUN 9, creatinine 0.7, glucose 113, calcium 7.7. Albumin 2.6. ASSESSMENT AND PLAN: 1. Encephalopathy, likely secondary to sepsis, resolved. This patient is completely alert and oriented x3. No focal deficits. 2. Sepsis secondary to urinary tract infection. Also, this patient is bacteremic. Blood culture showed Streptococcus pyogenes in blood and urine culture showed Escherichia coli, both sensitive to ceftriaxone. I have stopped her previous antibiotics with Zosyn and Zyvox. Infectious Disease Department on board. Blood culture negative so far. 3. Known alcoholic steatohepatitis, which is now apparently liver cirrhosis. This has been followed by her [facility] doctor. I stopped already her fluids, and I will continue with the home medications. She is doing better. 4. Type 2 diabetes. Hemoglobin A1c 8.7. Continue with same management. 5. Diarrhea. Better since we decreased the dose of lactulose. cc: Karthikeyan Shay MD
[2018-12-31] MEDS: HUMALOG SUBQ SCH ×4 (06:33→22:21)
[2018-12-31] MEDS: SYNTHROID PO SCH (06:34)
[2018-12-31 08:10] LABS: AGAP 11; BUN 11 mg/dL (8-22); CALCIUM 7.6 mg/dL (8.8-10.2); CHLORIDE 106 mmol/L (98-107); COSMO 275; CREATININE 0.7 mg/dL (0.5-0.9); ESTIMATED GFR > 60; GLUCOSE 106 mg/dL (70-104); POTASSIUM 3.6 mmol/L (3.5-5.1); SODIUM 138 mmol/L (136-145); TCO2 21 mmol/L (25-35)
[2018-12-31] MEDS: CORGARD PO SCH (09:03)
[2018-12-31] MEDS: ALDACTONE PO SCH ×2 (09:04→22:21)
[2018-12-31] MEDS: LASIX PO SCH (09:07)
[2018-12-31] MEDS: ICAR-C PO SCH ×2 (09:08→22:21)
[2018-12-31] MEDS: LACTULOSE PO SCH (09:08)
[2018-12-31] MEDS: PROTONIX PO SCH ×2 (09:08→22:21)
[2018-12-31] MEDS: LOVENOX SUBQ SCH (10:05)
--- NOTE | 2018-12-31 14:28 | PROGRESS NOTE ---
DATE: 12/31/2018 SUBJECTIVE: No acute events overnight. Blood culture has been negative. Hopefully tomorrow we can get a PICC line set up for medications, and she can go home. OBJECTIVE: Vital Signs: Temperature 98.5 degrees, pulse 61, respiratory rate 16, blood pressure 120/47. Oxygen saturation 98 on room air. HEENT: Head normocephalic, no trauma, PERRLA. Neck: Supple. No JVD. No masses. Central trachea. Chest: Clear to auscultation. No wheezing. No rales. Abdomen: Soft, slightly distended, protuberant. Positive fluid wave test. Bowel sounds present. Extremities: No edema, no clubbing, no cyanosis. Neurological: The patient is alert. She is oriented. She is following commands. She has not been confused. LABORATORY: Sodium 138, potassium 3.6, chloride 106, bicarbonate 21, BUN 11, creatinine 0.7, glucose 106, calcium 7.6. ASSESSMENT AND PLAN: 1. Encephalopathy, likely secondary to sepsis, resolved. 2. Sepsis secondary to urinary tract infection, bacteremia. Blood culture showed streptococcal pyogenes, and urine culture showed Escherichia coli, both sensitive to ceftriaxone. Infectious disease department on board. Blood culture has been so far negative. 3. Nonalcoholic steatohepatitis, which is now apparently liver cirrhosis. This has been followed by her [facility] doctor. Continue with her home medications. 4. Type 2 diabetes. Hemoglobin A1c is 8.7. Continue with same management. 5. Diarrhea. Better since the dose of lactulose has been decreased. Overall, this patient is doing much better. I think she can be discharged tomorrow after a PICC line placement and setting up the medications. cc: Karthikeyan Shay MD
[2018-12-31] MEDS: ROCEPHIN 2 GM in NS 50 ML IV SCH (17:56)
[2019-01-01] MEDS: HUMALOG SUBQ SCH ×2 (06:30→12:15)
[2019-01-01] MEDS: SYNTHROID PO SCH (06:30)
[2019-01-01 07:48] LABS: BASO# 0.02 X1000 (0.0-0.2); BASO% 0.6 % (0.0-0.8); EOS# 0.11 X1000 (0.0-0.7); EOS% 3.5 % (0.0-10.0); HEMATOCRIT 26.8 % (37.0-47.0); HEMOGLOBIN 8.4 g/dL (12.0-16.0); IMM GRAN# 0.02 X1000 (0.0-0.04); IMM GRAN% 0.6 % (0.0-0.5); LYMPH% 37.7 % (20.5-51.1); MCH 26.2 PG (27-31); MCHC 31.3 g/dL (33-37); MCV 83.5 FL (81-99); MONO# 0.43 X1000 (0.11-0.59); MONO% 13.5 % (1.7-9.3); MPV 10.9 FL (7.4-10.4); NEUT% 44.1 % (42.2-75.2); PLT 94 X1000 (130-400); RBC 3.21 XMIL (4.2-5.4); RDW 16.8 % (11.5-14.5); WBC 3.18 X1000 (4.8-10.8)
[2019-01-01 07:49] LABS: INR 1.19; PROTIME 16.1 Seconds (11.0-16.0)
[2019-01-01 08:19] LABS: AGAP 11; ALB/GLOB RATIO 0.9; ALBUMIN 2.5 g/dL (3.5-5.0); ALKALINE PHOSPHATASE 42 U/L (32-104); BUN 9 mg/dL (8-22); CALCIUM 7.4 mg/dL (8.8-10.2); CHLORIDE 106 mmol/L (98-107); COSMO 279; CREATININE 0.7 mg/dL (0.5-0.9); ESTIMATED GFR > 60; GLUCOSE 110 mg/dL (70-104); GOT 27 U/L (10-30); GPT 10 U/L (10-36); MAGNESIUM 1.6 mg/dL (1.5-2.7); POTASSIUM 2.9 mmol/L (3.5-5.1); SODIUM 140 mmol/L (136-145); TCO2 23 mmol/L (25-35); TOTAL BILIRUBIN 0.89 mg/dL (0.20-1.00); TOTAL PROTEIN 5.2 g/dL (6.3-8.3)
[2019-01-01] MEDS ORDERED: NS 250 ML ONE (09:05)
[2019-01-01] MEDS: ALDACTONE PO SCH (09:35)
[2019-01-01] MEDS: PROTONIX PO SCH (09:35)
[2019-01-01] MEDS: ICAR-C PO SCH (09:35)
[2019-01-01] MEDS: CORGARD PO SCH (09:35)
[2019-01-01] MEDS: LACTULOSE PO SCH ×2 (09:35→09:38)
[2019-01-01] MEDS: LASIX PO SCH (09:36)
[2019-01-01] MEDS: LOVENOX SUBQ SCH (09:36)
[2019-01-01] MEDS: ROCEPHIN 2 GM in NS 50 ML IV SCH (15:03)
[2019-01-01 15:56] VITALS: BP 146/46
--- NOTE | 2019-01-02 12:39 | DISCHARGE SUMMARY ---
ADMISSION DATE: 12/27/2018 DISCHARGE DATE: 01/01/2019 DISCHARGE DIAGNOSES: 1. Encephalopathy, likely secondary to sepsis. 2. Sepsis secondary to urinary tract infection/bacteremia. 3. Bacteremia due to Streptococcus pyogenes. 4. Urinary tract infection secondary to Escherichia coli. 5. Nonalcoholic steatohepatitis, which is now apparently liver cirrhosis. 6. Type 2 diabetes. Hemoglobin A1c is 8.7. 7. Diarrhea due to lactulose. PROCEDURES PERFORMED: Chest x-ray dated 12/27/2018. Impression: No pneumonia. HOSPITAL COURSE: A 68-year-old female with a past medical history of FLORES which is progressing to liver cirrhosis and ascites. She has a history of type 2 diabetes, hypertension, hypothyroidism as well. She came and was admitted on 12/27/2018 due to bilateral flank pain and foul-smelling urine. Laboratory showed that the patient has leukocytosis as well as nitrates positive in the urine, elevated bilirubin, normal ammonia level. This patient was noted to be confused. She was admitted to the medical floor. She was placed on IV fluids. She was placed on broad-spectrum antibiotics to cover gram-positive and gram-negative bacteria. We did a blood culture and urine culture that showed infection. Blood culture showed Streptococcus pyogenes, and urine culture showed Escherichia coli, both sensitive to ceftriaxone. Infectious Disease department evaluated this patient, and they have decided to continue treatment for a total of 14 days. We repeated the blood culture, and it has been negative for 72 hours. The patient's mental status resolved completely as well as the diarrhea that was because of too much lactulose. I decreased the amount from 3 times a day to once a day, and she has been doing fine. This patient will be going home today. She will get a PICC line, and also we will set up antibiotics for her. She will continue with the rest of her medications at home. PHYSICAL EXAMINATION: Vital signs: Temperature 98.4 degrees, pulse 59, respiratory rate 18, blood pressure 137/43, oxygen saturation 100% on room air HEENT: Head normocephalic, no trauma. PERRLA. Neck: Supple. No JVD. No masses. Central trachea. Chest: Clear to auscultation. No wheezing. Some crepitus at the bases. Abdomen: Soft, distended. Positive wave test sign. Neurological: The patient is alert. She is oriented. No focal deficits. DIAGNOSTIC STUDIES: WBC 3.1, hemoglobin 8.4, hematocrit 26.8, and platelets 94,000. Sodium 140, potassium 2.9, chloride 106, bicarbonate 23, BUN 9, creatinine 0.7, glucose 110, calcium 7.4, albumin 2.5. DISCHARGE MEDICATIONS: 1. Ceftriaxone 2 g daily to complete 14 days. 2. Janumet mg tablets daily. 3. Icar-C 1 tablet p.o. twice a day. 4. Centrum Silver 1 tablet p.o. daily. 5. Nadolol 20 mg p.o. daily. 6. Pantoprazole 40 mg p.o. twice a day. 7. Furosemide 20 mg p.o. daily. 8. Levothyroxine 75 mcg p.o. every morning. 9. Spironolactone 25 mg twice a day. 10. Lactulose 30 mL p.o. daily. FOLLOW-UP: Follow up with Dr. Luna in 2 weeks after completing treatment. Also follow up with her primary doctor and her gastroenterologists at [facility]. She will need to call for an appointment. cc: Karthikeyan Shay MD
== END 2019-01-01 16:05 | disposition home health service (06) | DRG 872 ==
LOC: ED 23:05 → 3N 12-27 03:20 → SUATTDRO 12-27 03:21 → 3N 12-27 03:21
PROVIDERS: ATTEND Internal Medicine
CPT/HCPCS: 36569; 71010; 71045; 80048; 80053; 81001; 82140; 82550; 82948; 83036; 83605; 83735; 84443; 84484; 85025; 85610; 85730; 87040; 87077; 87088; 87186; 94761; 96360; 99285; A9270; J0696; J1650; J1815; J2020; J2405; J2543; J3370; J3475; J3480; J7030; J7050; XXXXX